=== PATIENT | female | born 1975 | race Caucasian/White ===

== ENCOUNTER 2022-10-23 11:51 | Day surgery (SDC) | payer MEDICARE, MEDICAID ==
[~2022-10-23 11:51] MED LIST: Lactated Ringers 1,000 ML IV SCH; Midazolam 1 MG/ML 2 ML SDV ONE; Propofol 200 MG/20 ML SDV ONE; Sodium Chloride 0.9% 10 ML Syringe FLUSH PRN
[2022-10-23 12:41] LABS: HCG QUALITATIVE,URINE NEGATIVE
== END 2022-10-23 14:40 | disposition home or self-care (01) ==
LOC: LL.SDS 11:51
PROVIDERS: ATTEND Surgery
DX: R19.7 Diarrhea, unspecified (principal); K64.8 Other hemorrhoids; R30.0 Dysuria; N20.0 Calculus of kidney; Z79.899 Other long term (current) drug therapy; Z79.2 Long term (current) use of antibiotics; Z91.030 Bee allergy status
CPT/HCPCS: 00812; 81025; 88305; J2250; J2704; J7120